=== PATIENT | male | born 1965 | race African-American/Black ===

== ENCOUNTER 2018-12-14 16:22 | Inpatient (IN) | payer MEDICARE, MEDICAID ==
[~2018-12-14] VITALS: Ht 153.9 cm; Wt 74.8 kg
[2018-12-14] MEDS ORDERED: DICYCLOMINE HCL 10MG/ML 2ML AMP IM ONE (19:00)
[2018-12-14] MEDS ORDERED: SODIUM CHLORIDE 0.9% 1,000 ML IV ONE (19:00)
[2018-12-14 19:12] LABS: HEMATOCRIT. 32.5 % (42.0-52.0); HEMOGLOBIN. 9.6 g/dL (14.0-18.0); MEAN CORPUSCULAR HEMOGLOBIN 19.1 pg (28.0-32.0); MEAN CORPUSCULAR VOLUME 64.9 fL (80.0-94.0); MEAN PLATELET VOLUME 8.5 fl (7.4-10.4); PLATELET 480 x1000/uL (130-400); RED BLOOD CELL COUNT 5.01 mill/uL (4.7-6.1); RED CELL DISTRIBUTION WIDTH 17.1 % (11.6-14.6)
[2018-12-14 19:17] LABS: CHLORIDE 99 mEq/L (98-107)
[2018-12-14 19:29] LABS: PLATELET ESTIMATE INCREASED
[2018-12-14] MEDS ORDERED: IOHEXOL-300 100 ML BOTTLE ONE (21:49)
[2018-12-14] MEDS ORDERED: IPRATROPIUM/ALBUTEROL 0.5-3(2.5)MG/3ML NEB INH PRN (23:15)
[2018-12-14] MEDS ORDERED: DOCUSATE SODIUM 100MG CAPSULE PO PRN (23:15)
[2018-12-14] MEDS ORDERED: HYDRALAZINE 20MG/ML VIAL IV PRN (23:15)
[2018-12-14] MEDS ORDERED: LEVOFLOXACIN 500MG PREMIX 100 ML IV SCH (23:15)
[2018-12-14] MEDS ORDERED: HYDROMORPHONE HCL/PF 2MG/ML CPJ IV PRN (23:15)
[2018-12-14] MEDS ORDERED: MAGNESIUM/ALUMINUM HYDROXIDE/SIMETHICONE 30ML UDC PO PRN (23:15)
[2018-12-14] MEDS ORDERED: CLONIDINE 0.1MG TABLET PO PRN (23:15)
[2018-12-14] MEDS ORDERED: DIPHENHYDRAMINE 50MG/ML VIAL IV PRN (23:15)
[2018-12-14] MEDS ORDERED: GUAIFENESIN 200MG/10ML SUGAR FREE UDC PO PRN (23:15)
[2018-12-14] MEDS ORDERED: LORAZEPAM 2MG/ML CPJ IV PRN (23:15)
[2018-12-14] MEDS ORDERED: ONDANSETRON HCL 4MG/2ML INJ IV PRN (23:15)
[2018-12-14 23:50] VITALS: BP 138/71
[2018-12-15] VITALS: BP 138/71
[2018-12-15] MEDS ORDERED: HYDRALAZINE 10 MG in SODIUM CHLORIDE 0.9% 49.5 ML IV PRN (00:30)
[2018-12-15] MEDS ORDERED: SULF500T8 PO (00:49)
[2018-12-15] MEDS: LEVOFLOXACIN 500MG PREMIX 100 ML IV SCH (02:13)
[2018-12-15] MEDS: SODIUM CHLORIDE 0.45% 1,000 ML IV SCH ×2 (02:13→13:29)
[2018-12-15] MEDS: ACETAMINOPHEN 325MG TABLET PO PRN ×2 (02:14→09:04)
[2018-12-15 04:00] VITALS: BP 131/69
[2018-12-15] MEDS ORDERED: METRONIDAZOLE 500 MG PREMIX 100 ML IV SCH (06:00)
[2018-12-15] MEDS: METRONIDAZOLE 500 MG PREMIX 100 ML IV SCH ×3 (06:04→22:30)
[2018-12-15] MEDS: HYDROCODONE/ACETAMINOPHEN 10/325MG TABLET PO PRN ×2 (06:04→11:23)
[2018-12-15 06:58] LABS: CHLORIDE 99 mEq/L (98-107)
[2018-12-15 07:04] LABS: HEMOGLOBIN. 9.1 g/dL (14.0-18.0); MEAN CORPUSCULAR HEMOGLOBIN 19.7 pg (28.0-32.0); MEAN CORPUSCULAR VOLUME 64.9 fL (80.0-94.0); MEAN PLATELET VOLUME 9.5 fl (7.4-10.4); PLATELET 438 x1000/uL (130-400); RED BLOOD CELL COUNT 4.62 mill/uL (4.7-6.1); RED CELL DISTRIBUTION WIDTH 17.4 % (11.6-14.6)
[2018-12-15 08:00] VITALS: BP 117/60
[2018-12-15] MEDS: ENOXAPARIN 40MG/0.4ML SYR SUBCUT SCH (09:04)
[2018-12-15] MEDS ORDERED: POTASSIUM CHLORIDE 20MEQ/PACKET PO SCH (11:00)
[2018-12-15 12:00] VITALS: BP 114/55
[2018-12-15 12:42] LABS: CLARITY URINE CLEAR (CLEAR); COLOR URINE YELLOW (YELLOW); KETONES URINE 2+ (NEGATIVE); LEUKOCYTE ESTERASE URINE NEGATIVE (NEGATIVE); NITRITE URINE NEGATIVE (NEGATIVE); OCCULT BLOOD URINE NEGATIVE (NEGATIVE); PH URINE 5.5 (4.5-8.0); PROTEIN URINE 1+ (NEGATIVE); SPECIFIC GRAVITY URINE 1.069 (1.005-1.030); UROBILINOGEN URINE 0.2 E.U./dL (0.2-1.0)
[2018-12-15 13:27] LABS: PLATELET ESTIMATE INCREASED
[2018-12-15 13:51] LABS: TOTAL IRON BINDING CAPACITY 369 ug/dL (250-450)
[2018-12-15] MEDS: SODIUM CHLORIDE 0.9% INJ 3ML FLUSH IVF SCH ×2 (14:00→22:30)
[2018-12-15] MEDS ORDERED: METHYLPREDNISOLONE SOD SUCC 40 MG/ML VIAL IV SCH ×2 (14:00→15:00)
[2018-12-15 16:00] VITALS: BP 123/73
[2018-12-15] MEDS: MESALAMINE 400 MG CAPSULE.DR PO SCH (16:54)
[2018-12-15 20:00] VITALS: BP 127/67
[2018-12-16] VITALS: BP 114/64
[2018-12-16] MEDS: SODIUM CHLORIDE 0.45% 1,000 ML IV SCH ×2 (00:13→16:34)
[2018-12-16] MEDS: LEVOFLOXACIN 500MG PREMIX 100 ML IV SCH (01:58)
[2018-12-16 04:00] VITALS: BP 115/55
[2018-12-16] MEDS: METRONIDAZOLE 500 MG PREMIX 100 ML IV SCH ×3 (05:11→21:41)
[2018-12-16 08:00] VITALS: BP 128/75
[2018-12-16] MEDS: HYDROCODONE/ACETAMINOPHEN 10/325MG TABLET PO PRN (08:20)
[2018-12-16] MEDS: MESALAMINE 400 MG CAPSULE.DR PO SCH ×3 (08:20→16:34)
[2018-12-16] MEDS: ENOXAPARIN 40MG/0.4ML SYR SUBCUT SCH (08:21)
[2018-12-16] MEDS ORDERED: POTASSIUM CHLORIDE 20MEQ TABLET SR PO NR (09:45)
[2018-12-16 12:00] VITALS: BP 132/68
[2018-12-16 16:00] VITALS: BP_SYST 122; BP_SYST 233; BP_DIAS 75
[2018-12-16 20:00] VITALS: BP 133/56
[2018-12-16] MEDS: SODIUM CHLORIDE 0.9% INJ 3ML FLUSH IVF SCH (21:42)
[2018-12-17] VITALS: BP 108/59
[2018-12-17] MEDS: LEVOFLOXACIN 500MG PREMIX 100 ML IV SCH (00:39)
[2018-12-17 04:00] VITALS: BP 101/49
[2018-12-17] MEDS: SODIUM CHLORIDE 0.45% 1,000 ML IV SCH ×2 (06:45→19:40)
[2018-12-17] MEDS: METRONIDAZOLE 500 MG PREMIX 100 ML IV SCH ×3 (06:49→21:56)
[2018-12-17] MEDS: SODIUM CHLORIDE 0.9% INJ 3ML FLUSH IVF SCH ×3 (06:49→21:55)
[2018-12-17 07:38] LABS: HEMATOCRIT. 25.8 % (42.0-52.0); HEMOGLOBIN. 7.8 g/dL (14.0-18.0); MEAN CORPUSCULAR HEMOGLOBIN 19.8 pg (28.0-32.0); MEAN CORPUSCULAR VOLUME 65.3 fL (80.0-94.0); MEAN PLATELET VOLUME 9.1 fl (7.4-10.4); PLATELET 402 x1000/uL (130-400); RED BLOOD CELL COUNT 3.95 mill/uL (4.7-6.1)
[2018-12-17 07:39] LABS: CHLORIDE 102 mEq/L (98-107)
[2018-12-17 08:00] VITALS: BP 114/48
[2018-12-17] MEDS: HYDROCODONE/ACETAMINOPHEN 10/325MG TABLET PO PRN (08:58)
[2018-12-17] MEDS: ENOXAPARIN 40MG/0.4ML SYR SUBCUT SCH (08:59)
[2018-12-17] MEDS: MESALAMINE 400 MG CAPSULE.DR PO SCH ×3 (09:26→16:36)
[2018-12-17] MEDS: PANTOPRAZOLE SODIUM 40 MG/VIAL IV SCH (10:52)
[2018-12-17] MEDS: FOLIC ACID 1MG TABLET PO SCH (10:52)
[2018-12-17 10:56] LABS: PLATELET ESTIMATE SLIGHTLY INCREASED
[2018-12-17 12:17] VITALS: BP 120/58
[2018-12-17] MEDS: PREDNISONE 20MG TABLET PO SCH (16:00)
[2018-12-17 16:07] VITALS: BP 124/56
[2018-12-17 20:02] LABS: HEMATOCRIT 27.3 % (42.0-52.0); HEMOGLOBIN 8.2 g/dL (14.0-18.0)
[2018-12-18] MEDS: LEVOFLOXACIN 500MG PREMIX 100 ML IV SCH (00:46)
[2018-12-18] MEDS: SODIUM CHLORIDE 0.9% INJ 3ML FLUSH IVF SCH (05:16)
[2018-12-18] MEDS: METRONIDAZOLE 500 MG PREMIX 100 ML IV SCH (05:16)
[2018-12-18 08:00] VITALS: BP 108/59
[2018-12-18 08:10] LABS: HEMATOCRIT 26.6 % (42.0-52.0); HEMOGLOBIN 7.9 g/dL (14.0-18.0); MEAN CORPUSCULAR HEMOGLOBIN 19.3 pg (28.0-32.0); MEAN CORPUSCULAR VOLUME 65.3 fL (80.0-94.0); PLATELET 403 x1000/uL (130-400); RED BLOOD CELL COUNT 4.07 mill/uL (4.7-6.1)
[2018-12-18] MEDS: PREDNISONE 20MG TABLET PO SCH (08:35)
[2018-12-18] MEDS: FOLIC ACID 1MG TABLET PO SCH (08:35)
[2018-12-18] MEDS: MESALAMINE 400 MG CAPSULE.DR PO SCH (08:36)
[2018-12-18] MEDS: SODIUM CHLORIDE 0.45% 1,000 ML IV SCH (08:36)
[2018-12-18] MEDS: PANTOPRAZOLE SODIUM 40 MG/VIAL IV SCH (08:36)
[2018-12-18 09:21] VITALS: BP 108/59
== END 2018-12-18 12:56 | disposition home or self-care (01) | DRG 872 ==
LOC: ER 16:22 → 6EST 22:10 → ENRESERV 22:41
PROVIDERS: ADMIT Internal Medicine; ATTEND Internal Medicine
DX: A41.9 Sepsis, unspecified organism (principal); K50.90 Crohn's disease, unspecified, without complications; D64.9 Anemia, unspecified; E87.6 Hypokalemia; Z90.49 Acquired absence of other specified parts of digestive tract
CPT/HCPCS: 36415; 74177; 80048; 82728; 83540; 83550; 85014; 85018; 85027; 96365; 96372; 99285; C9113; J0500; J1650; J1956; J2920; J3490; J7030; J7512; Q9967

== ENCOUNTER 2019-06-09 05:04 | Inpatient (IN) | payer MEDICARE, MEDICAID ==
[~2019-06-09] VITALS: Ht 170.2 cm; Wt 60.8 kg
[~2019-06-09 05:04] MED LIST: FERR325T23 PO; MESA400C PO
[2019-06-09] MEDS ORDERED: ONDANSETRON HCL 4MG/2ML INJ IV STA (06:23)
[2019-06-09] MEDS ORDERED: MORPHINE SULFATE 4 MG/ML CPJ (NOT FOR IM USE) IV STA (06:23)
[2019-06-09] MEDS ORDERED: SODIUM CHLORIDE 0.9% 1,000 ML IV ONE (06:23)
[2019-06-09 07:11] LABS: BASOPHILS % 0.7 % (0.0-2.0); EOSINOPHILS % 0.5 % (0.0-5.0); HEMATOCRIT. 35.3 % (42.0-52.0); HEMOGLOBIN. 10.7 g/dL (14.0-18.0); LYMPHOCYTES % 14.8 % (20.0-50.0); MEAN CORPUSCULAR HEMOGLOBIN 20.6 pg (28.0-32.0); MEAN CORPUSCULAR VOLUME 68.1 fL (80.0-94.0); MEAN PLATELET VOLUME 9.7 fl (7.4-10.4); MONOCYTES % 8.8 % (2.0-8.0); NEUTROPHILS % 75.2 % (40.0-76.0); PLATELET 496 x1000/uL (130-400); RED BLOOD CELL COUNT 5.18 mill/uL (4.7-6.1); RED CELL DISTRIBUTION WIDTH 27.5 % (11.6-14.6)
[2019-06-09 07:14] LABS: CHLORIDE 105 mEq/L (98-107)
[2019-06-09] MEDS ORDERED: KCL 20MEQ/100ML PREMIX 100 ML IV ONE (07:45)
[2019-06-09 07:46] LABS: CLARITY URINE CLOUDY (CLEAR); COLOR URINE YELLOW (YELLOW); KETONES URINE TRACE (NEGATIVE); LEUKOCYTE ESTERASE URINE NEGATIVE (NEGATIVE); NITRITE URINE NEGATIVE (NEGATIVE); OCCULT BLOOD URINE NEGATIVE (NEGATIVE); PROTEIN URINE TRACE (NEGATIVE); SPECIFIC GRAVITY URINE 1.026 (1.005-1.030); UROBILINOGEN URINE 0.2 E.U./dL (0.2-1.0)
[2019-06-09] MEDS ORDERED: SODIUM CHLORIDE 0.9% 1000ML BAG (SEPSIS BOLUS) IV ONE (08:00)
[2019-06-09] MEDS ORDERED: METRONIDAZOLE 500 MG PREMIX 100 ML IV ONE (08:15)
[2019-06-09] MEDS ORDERED: LEVOFLOXACIN 750MG PREMIX 150 ML IV ONE (08:15)
[2019-06-09] MEDS ORDERED: KCL 20MEQ/100ML PREMIX 100 ML IV SCH (08:30)
[2019-06-09 08:55] LABS: PLATELET ESTIMATE INCREASED
[2019-06-09] MEDS ORDERED: IOHEXOL-300 100 ML BOTTLE ONE (10:15)
[2019-06-09] MEDS ORDERED: SODIUM CHLORIDE 0.45% 1,000 ML IV SCH (10:17)
[2019-06-09] MEDS ORDERED: ACETAMINOPHEN 325MG TABLET PO PRN (10:30)
[2019-06-09] MEDS ORDERED: CLONIDINE 0.1MG TABLET PO PRN (10:30)
[2019-06-09] MEDS ORDERED: MORPHINE SULFATE 2 MG/ML CPJ (NOT FOR IM USE) IV PRN (10:30)
[2019-06-09] MEDS ORDERED: ONDANSETRON HCL 4MG/2ML INJ IV PRN (10:30)
[2019-06-09 11:40] VITALS: BP 111/59
[2019-06-09] MEDS: METHYLPREDNISOLONE SOD SUCC 40 MG/ML VIAL IV SCH (12:13)
[2019-06-09 12:17] LABS: TOTAL IRON BINDING CAPACITY 255 ug/dL (250-450)
[2019-06-09 12:30] VITALS: BP 111/59
[2019-06-09 12:36] LABS: FOLIC ACID (FOLATE) SERUM 19.1 ng/mL (>5.38)
[2019-06-09] MEDS: MESALAMINE 400 MG CAPSULE.DR PO SCH ×2 (12:55→17:34)
[2019-06-09] MEDS: LEVOFLOXACIN 500MG PREMIX 100 ML IV SCH (13:59)
[2019-06-09] MEDS: METRONIDAZOLE 500 MG PREMIX 100 ML IV SCH ×2 (13:59→21:58)
[2019-06-09 16:00] VITALS: BP 110/65
[2019-06-09] MEDS ORDERED: SODIUM CHLORIDE 0.45% 500 ML IV ONE (17:00)
[2019-06-09] MEDS ORDERED: POTASSIUM CHLORIDE 20MEQ TABLET SR PO NR (17:00)
[2019-06-09 20:00] VITALS: BP 115/60
[2019-06-10] VITALS: BP 121/65
[2019-06-10] MEDS: METHYLPREDNISOLONE SOD SUCC 40 MG/ML VIAL IV SCH ×3 (00:41→23:57)
[2019-06-10] MEDS: DEXT 5%/0.45% NACL 1000ML 1,000 ML IV SCH ×2 (01:00→13:36)
[2019-06-10 04:00] VITALS: BP 110/55
[2019-06-10] MEDS: METRONIDAZOLE 500 MG PREMIX 100 ML IV SCH ×3 (05:01→23:56)
[2019-06-10 05:51] LABS: BASOPHILS % 0.1 % (0.0-2.0); HEMATOCRIT. 26.7 % (42.0-52.0); HEMOGLOBIN. 8.4 g/dL (14.0-18.0); LYMPHOCYTES % 8.3 % (20.0-50.0); MEAN CORPUSCULAR HEMOGLOBIN 21.5 pg (28.0-32.0); MEAN CORPUSCULAR VOLUME 68.2 fL (80.0-94.0); MEAN PLATELET VOLUME 9.4 fl (7.4-10.4); NEUTROPHILS % 89.6 % (40.0-76.0); PLATELET 329 x1000/uL (130-400); RED BLOOD CELL COUNT 3.92 mill/uL (4.7-6.1); RED CELL DISTRIBUTION WIDTH 26.4 % (11.6-14.6)
[2019-06-10 06:05] LABS: CHLORIDE 106 mEq/L (98-107)
[2019-06-10 06:15] LABS: LDL CHOLESTEROL 67 mg/dL (5-100)
[2019-06-10 06:16] LABS: HDL CHOLESTEROL 33 mg/dL (40-59)
[2019-06-10 08:00] VITALS: BP 130/68
[2019-06-10] MEDS: MESALAMINE 400 MG CAPSULE.DR PO SCH ×3 (08:42→17:38)
[2019-06-10 12:00] VITALS: BP 126/63
[2019-06-10] MEDS: IRON SUCROSE COMPLEX 100 MG/5 ML ML IV SCH (12:27)
[2019-06-10] MEDS: LEVOFLOXACIN 500MG PREMIX 100 ML IV SCH (13:36)
[2019-06-10 16:00] VITALS: BP 116/61
[2019-06-10 20:00] VITALS: BP 109/62
[2019-06-11] VITALS: BP 110/55
[2019-06-11 04:00] VITALS: BP 104/48
[2019-06-11] MEDS: DEXT 5%/0.45% NACL 1000ML 1,000 ML IV SCH ×3 (05:26→23:31)
[2019-06-11] MEDS: METRONIDAZOLE 500 MG PREMIX 100 ML IV SCH ×3 (06:03→23:31)
[2019-06-11 07:32] LABS: HEMATOCRIT. 26.5 % (42.0-52.0); HEMOGLOBIN. 8.2 g/dL (14.0-18.0); MEAN CORPUSCULAR HEMOGLOBIN 21.4 pg (28.0-32.0); MEAN CORPUSCULAR VOLUME 68.6 fL (80.0-94.0); MONOCYTES % 5.2 % (2.0-8.0); NEUTROPHILS % 86.8 % (40.0-76.0); PLATELET 318 x1000/uL (130-400); RED BLOOD CELL COUNT 3.86 mill/uL (4.7-6.1); RED CELL DISTRIBUTION WIDTH 26.9 % (11.6-14.6)
[2019-06-11 07:41] LABS: CHLORIDE 108 mEq/L (98-107)
[2019-06-11] MEDS: IRON SUCROSE COMPLEX 100 MG/5 ML ML IV SCH (08:57)
[2019-06-11] MEDS: MESALAMINE 400 MG CAPSULE.DR PO SCH ×3 (08:57→16:57)
[2019-06-11 12:00] VITALS: BP 109/56
[2019-06-11] MEDS: METHYLPREDNISOLONE SOD SUCC 40 MG/ML VIAL IV SCH (13:56)
[2019-06-11] MEDS: LEVOFLOXACIN 500MG PREMIX 100 ML IV SCH (14:00)
[2019-06-11 16:00] VITALS: BP 113/54
[2019-06-11] MEDS ORDERED: LEVOFLOXACIN 500MG PREMIX 100 ML IV SCH (16:00)
[2019-06-11 20:00] VITALS: BP 104/48
[2019-06-12] VITALS: BP 90/42
[2019-06-12] MEDS: METHYLPREDNISOLONE SOD SUCC 40 MG/ML VIAL IV SCH ×3 (00:16→23:15)
[2019-06-12 04:00] VITALS: BP 101/46
[2019-06-12] MEDS: METRONIDAZOLE 500MG TABLET PO SCH ×3 (05:51→21:34)
[2019-06-12 08:00] VITALS: BP 101/43
[2019-06-12] MEDS: IRON SUCROSE COMPLEX 100 MG/5 ML ML IV SCH (08:52)
[2019-06-12] MEDS: MESALAMINE 400 MG CAPSULE.DR PO SCH ×3 (08:52→17:11)
[2019-06-12] MEDS ORDERED: LEVOFLOXACIN 500MG TABLET PO SCH (11:00)
[2019-06-12 11:57] LABS: BASOPHILS % 0.2 % (0.0-2.0); EOSINOPHILS % 0.1 % (0.0-5.0); HEMATOCRIT. 26.4 % (42.0-52.0); MEAN CORPUSCULAR HEMOGLOBIN 20.9 pg (28.0-32.0); MEAN PLATELET VOLUME 8.7 fl (7.4-10.4); MONOCYTES % 12.2 % (2.0-8.0); NEUTROPHILS % 72.5 % (40.0-76.0); PLATELET 319 x1000/uL (130-400); RED BLOOD CELL COUNT 3.82 mill/uL (4.7-6.1); RED CELL DISTRIBUTION WIDTH 26.8 % (11.6-14.6)
[2019-06-12 12:00] VITALS: BP 102/50
[2019-06-12 12:05] LABS: CHLORIDE 110 mEq/L (98-107)
[2019-06-12 12:10] LABS: PHOSPHORUS 2.6 mg/dL (2.5-4.9)
[2019-06-12 16:00] VITALS: BP 101/56
[2019-06-12] MEDS: DEXT 5%/0.45% NACL 1000ML 1,000 ML IV SCH (19:02)
[2019-06-12 20:00] VITALS: BP 109/52
[2019-06-13] VITALS: BP 106/49
[2019-06-13 04:00] VITALS: BP 104/40
[2019-06-13] MEDS: METRONIDAZOLE 500MG TABLET PO SCH (06:05)
[2019-06-13 06:29] LABS: BASOPHILS % 0.3 % (0.0-2.0); CHLORIDE 110 mEq/L (98-107); HEMATOCRIT. 30.2 % (42.0-52.0); HEMOGLOBIN. 9.1 g/dL (14.0-18.0); LYMPHOCYTES % 9.6 % (20.0-50.0); MEAN CORPUSCULAR VOLUME 69.9 fL (80.0-94.0); MEAN PLATELET VOLUME 9.8 fl (7.4-10.4); MONOCYTES % 3.3 % (2.0-8.0); NEUTROPHILS % 86.8 % (40.0-76.0); PLATELET 325 x1000/uL (130-400); RED BLOOD CELL COUNT 4.32 mill/uL (4.7-6.1); RED CELL DISTRIBUTION WIDTH 27.4 % (11.6-14.6)
[2019-06-13] MEDS: DEXT 5%/0.45% NACL 1000ML 1,000 ML IV SCH (07:57)
[2019-06-13 08:00] VITALS: BP 101/56
[2019-06-13] MEDS ORDERED: METHYLPREDNISOLONE SOD SUCC 40 MG/ML VIAL IV SCH (09:00)
[2019-06-13] MEDS: MESALAMINE 400 MG CAPSULE.DR PO SCH (09:44)
[2019-06-13 10:14] VITALS: BP 101/56
== END 2019-06-13 12:40 | disposition home or self-care (01) | DRG 385 ==
LOC: ER 05:04 → 5WST 09:01 → ENRESERV 10:00
PROVIDERS: ADMIT Internal Medicine Nephrology; ATTEND Internal Medicine Nephrology
DX: K50.90 Crohn's disease, unspecified, without complications (principal); E43 Unspecified severe protein-calorie malnutrition; E87.6 Hypokalemia; E86.9 Volume depletion, unspecified; D50.9 Iron deficiency anemia, unspecified; Z90.49 Acquired absence of other specified parts of digestive tract; Z93.3 Colostomy status; Z68.21 Body mass index [BMI] 21.0-21.9, adult; Z79.899 Other long term (current) drug therapy; Z88.8 Allergy status to other drugs, medicaments and biological substances; Z91.011 Allergy to milk products
CPT/HCPCS: 36415; 71045; 74177; 80048; 80061; 81003; 82270; 82607; 82728; 82746; 83540; 83550; 83605; 83735; 84100; 84443; 84484; 87015; 87045; 87427; 87449; 87493; 89055; 93005; 93306; 93970; 96374; 97161; 99285; J1956; J2270; J2405; J2920; J3480; J3490; J7030; Q9967

== ENCOUNTER 2019-10-03 23:47 | Emergency (ER) | payer MEDICARE, MEDICAID ==
[~2019-10-03] VITALS: Ht 170.2 cm; Wt 70.6 kg
[2019-10-04 00:49] VITALS: BP 121/70
== END 2019-10-04 00:49 | disposition home or self-care (01) ==
LOC: ER 23:47
DX: L72.3 Sebaceous cyst (principal); K50.90 Crohn's disease, unspecified, without complications; Z93.3 Colostomy status; Z98.890 Other specified postprocedural states; Z91.011 Allergy to milk products; Z88.8 Allergy status to other drugs, medicaments and biological substances; Z79.899 Other long term (current) drug therapy
CPT/HCPCS: 99281

== ENCOUNTER 2021-02-17 13:57 | Emergency (ER) | payer MEDICARE, MEDICAID ==
[~2021-02-17] VITALS: Ht 170.2 cm; Wt 61.5 kg
[2021-02-17] MEDS ORDERED: SODIUM CHLORIDE 0.9% 1,000 ML IV ONE (14:30)
[2021-02-17 15:12] LABS: BASOPHILS % 0.2 % (0.0-2.0); EOSINOPHILS % 0.8 % (0.0-5.0); HEMATOCRIT. 33.8 % (42.0-52.0); HEMOGLOBIN. 10.4 g/dL (14.0-18.0); LYMPHOCYTES % 16.9 % (20.0-50.0); MEAN CORPUSCULAR HEMOGLOBIN 20.1 pg (28.0-32.0); MEAN CORPUSCULAR VOLUME 65.1 fL (80.0-94.0); MONOCYTES % 12.3 % (2.0-8.0); NEUTROPHILS % 69.8 % (40.0-76.0); RED BLOOD CELL COUNT 5.19 mill/uL (4.7-6.1); RED CELL DISTRIBUTION WIDTH 18.3 % (11.6-14.6)
[2021-02-17 15:18] LABS: CHLORIDE 104 mEq/L (98-107)
[2021-02-17 15:20] LABS: PROTHROMBIN TIME 10.9 sec (9.6-11.0)
[2021-02-17 15:28] LABS: CREATINE KINASE 61 IU/L (39-308)
[2021-02-17 16:13] LABS: MEAN PLATELET VOLUME 9.8 fl (7.4-10.4); PLATELET 361 x1000/uL (130-400)
[2021-02-17 16:14] LABS: PLATELET ESTIMATE NORMAL
[2021-02-17 16:37] VITALS: BP 123/63
== END 2021-02-17 18:39 | disposition home or self-care (01) ==
LOC: ER 13:57
DX: R53.1 Weakness (principal); D64.9 Anemia, unspecified; K50.90 Crohn's disease, unspecified, without complications
CPT/HCPCS: 36415; 71045; 80053; 82550; 83690; 85025; 85610; 93005; 96360; 99285; J7030